=== PATIENT | male | born 1950 | race Caucasian/White ===

== ENCOUNTER 2019-04-19 07:36 | Inpatient (IN) ==
[2019-04-19] MEDS ORDERED: *HR* Propofol 200 MG/20 ML VIAL IVP ONE (07:44)
[2019-04-19] MEDS ORDERED: Lidocaine -MPF 2% 2 ML VIAL ONE (07:44)
--- NOTE | 2019-04-19 08:16 | History & Physical Report ---
Date of Encounter: 04/19/19 Time of Encounter: 08:16 24 Hour HP Update - Instructions Instructions: If the History and Physical is less than 30 days old and was completed prior to A.M. admission and or procedure and has NOT been updated on calendar day of procedure please complete this update prior to performing procedure. - Update Patient reports changes in Medical Condition: No Changes in examination, assessment, or condition: No Changes in Medication: No Preop tests/diagnostics Reviewed: Yes Surgery Remains Indicated: Yes Consent for Planned Operative Procedure(s) Verified: Yes
--- NOTE | 2019-04-19 08:27 | Anesthesia Evaluation PreOp ---
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: Denies Any Significant HX Other Medical History: Denies Any Significant HX Anesthesia History: No Prior Anesthetic Complications Alcohol Use: heavy Drug use: none Medications and Allergies Albuterol Sulfate [Proair Hfa] 2 puff IH Q4-6H PRN 03/03/19 [History] Amlodipine Besylate 10 mg PO DAILY 03/03/19 [History] Aspirin [Lo-Dose Aspirin EC] 81 mg PO DAILY 03/03/19 [History] Lisinopril [Zestril] 20 mg PO DAILY 03/03/19 [History] Metoprolol Tartrate 200 mg PO BID 03/03/19 [History] Multivitamin [One Daily Essential] 1 tab PO DAILY 03/03/19 [History] cloNIDine HCl [Clonidine HCl] 0.2 mg PO BID 03/03/19 [History] hydroCHLOROthiazide [Hydrochlorothiazide] 25 mg PO DAILY 03/03/19 [History] Nicotine Patch [Nicoderm] 14 mg TD DAILY #30 patch.[email or web address] 03/20/19 [Rx] Allergy/AdvReac Type Severity Reaction Status Date / Time No Known Allergies Allergy Verified 04/06/19 10:31 - Meds/Allergy Pre-op Review Medications Reviewed: Yes Allergies Reviewed: Yes Beta Blockers on Current Med List: Yes (on metoprolol) Anesthesia Results - Labs Laboratory Tests 04/06/19 04/06/19 10:08 10:08 Hgb 14.7 Hct 42.2 Plt Count 176 Sodium 136 Potassium 4.2 BUN 11 Creatinine 0.61 L - Imaging EKG: report reviewed (SB) Anesthesia Exam O2 Sat Height 1.6 m Weight 61.235 kg Height: 5'3 Weight: 135 lbs NPO (# of Hours): MN Pain Scale: 0 - HEENT Pupil (Motor): Pupils equal, EOMI Oral Opening: Greater than 3 - WALL STEAMER LOC: Oriented WALL STEAMER Motor: Normal RUE, Normal LUE, Normal RLE, Normal LLE, Normal Face WALL STEAMER Sensory: Normal: RUE, LUE, RLE, LLE, Face - Cardiac Rhythm: Regular Murmur: None JVD: No Carotid Bruit: No - Pulmonary Breath Sounds: bilateral Clear Respiratory Effort: Symmetrical Anesthesia Assess/Plan ASA Score: 3 (HTN Tobacco Alcohol Abuse) Level of consciousness: Cooperative, Oriented Anesthetic Plan: MAC Autologous Blood: No Monitoring Plan: Standard Monitors Recovery Plan: Other (Discussed MAC, agrees to proceed)
[2019-04-19] MEDS ORDERED: Ringers Solution, Lactated 1,000 ML IVC SCH (08:30)
[2019-04-19] MEDS ORDERED: Albuterol 2.5 MG/3 ML NEBULIZER IH ONE (08:40)
[2019-04-19] MEDS ORDERED: Albuterol 2.5 MG/3 ML NEBULIZER ONE (08:43)
--- NOTE | 2019-04-19 09:50 | Anesthesia Evaluation Post Op ---
Date of Encounter: 04/19/19 Time of Encounter: 09:50 - Vital Signs Vital Signs: Vital Signs/O2 Sat/Glucose, Most Current Temp Pulse Resp BP Pulse Ox 04/19/19 09:32 97.1 F L 47 16 99/57 100 04/19/19 08:30 18 124/53 100 04/19/19 08:25 98 F 47 18 124/53 100 - Lungs Lungs: Clear Ascult./Percussion - Airway Airway: Non-obstructed - Cardiovascular Regular Rate - Mental Status Mental Status: Alert & Oriented, Answers Appropriately - Pain Pain Scale: 0 - Nausea Vomiting Nausea Vomiting: Not Present - Hydration Hydration: NPO - Discharge PostOp Status: Transfer Patient to floor (Patient has obstructing mass, will get admitted)
[2019-04-19] MEDS ORDERED: Ondansetron 4 MG/2 ML VIAL IVP PRN (11:23)
[2019-04-19] MEDS ORDERED: Isovue-370 500 ML BOTTLE IVP ONE ×2 (11:23)
[2019-04-19] MEDS: 0.9 % Sodium Chloride 1,000 ML IVC SCH (12:07)
[2019-04-19 12:28] LABS: Basophils % 0.3 %; Eosinophils % 3.4 %; Hematocrit 45.4 % (37.5-50.1); Hemoglobin 15.7 g/dL (12.9-16.9); Immature Granulocytes % 0.6 % (0-4); Lymphocytes % 25.7 %; Mean Corpuscular HGB Conc 34.6 g/dL (31.6-35.5); Mean Corpuscular Hemoglobin 35.2 pg (28.0-33.3); Mean Corpuscular Volume 101.8 fL (83.0-100.0); Mean Platelet Volume 9.1 fL (9.4-12.4); Monocytes % 15.8 %; Platelet Count 191 K/mcL (140-400); Red Blood Count 4.46 M/mcL (4.19-5.50); Red Cell Distribution Width 13.4 % (11.5-14.5); Segmented Neutrophils % 54.2 %
[2019-04-19 12:29] LABS: Eosinophils # 0.2 K/mcL (0.0-0.6); Lymphocytes # 1.7 K/mcL (0.6-4.6); Monocytes # 1.1 K/mcL (0.0-1.3); Neutrophils # 3.7 K/mcL (1.6-8.9)
[2019-04-19 12:38] LABS: Alanine Aminotransferase 39 Units/L (7-52); Albumin 4.1 g/dL (3.5-5.7); Albumin/Globulin Ratio 1.3 (1.1-2.2); Alkaline Phosphatase 64 Units/L (34-104); Aspartate Amino Transferase 35 Units/L (13-39); BUN/Creatinine Ratio 10 (6-26); Bilirubin,Direct 0.1 mg/dL (0.0-0.2); Bilirubin,Indirect 0.5 mg/dL (0.0-1.2); Bilirubin,Total 0.6 mg/dL (0.3-1.0); Blood Urea Nitrogen 8 mg/dL (8-23); Calcium 9.6 mg/dL (8.6-10.3); Carbon Dioxide 25 mEq/L (23-29); Chloride 103 mEq/L (98-107); Globulin 3.1 g/dL (2.4-3.5); Glucose 102 mg/dL (70-105); Osmolality,Calculated 269 (280-300); Potassium 3.7 mEq/L (3.5-5.1); Sodium 130 mEq/L (136-145); Total Protein 7.2 g/dL (6.4-8.9); eGFR For Non-African Americans > 60 (> 60)
[2019-04-19] MEDS: Nicotine 21 MG PATCH.TD24 TD SCH (17:07)
[2019-04-19] MEDS: cloNIDine HCl 0.1 MG TABLET PO SCH (20:28)
[2019-04-19] MEDS: Metoprolol 100 MG TABLET PO SCH (20:28)
[2019-04-20] MEDS ORDERED: Lisinopril 20 MG TABLET PO SCH (09:00)
[2019-04-20] MEDS ORDERED: Pantoprazole 40 MG VIAL IVP SCH (09:00)
[2019-04-20] MEDS ORDERED: amLODIPine 5 MG TABLET PO SCH (09:00)
[2019-04-20] MEDS ORDERED: hydroCHLOROthiazide 25 MG TABLET PO SCH (09:00)
[2019-04-20] MEDS ORDERED: Aspirin Enteric Coated 81 MG Tablet PO SCH (09:00)
[2019-04-20] MEDS: Metoprolol 100 MG TABLET PO SCH ×2 (09:14→20:15)
[2019-04-20] MEDS: Nicotine 21 MG PATCH.TD24 TD SCH (09:15)
[2019-04-20] MEDS: cloNIDine HCl 0.1 MG TABLET PO SCH ×2 (09:15→20:17)
[2019-04-20] MEDS: 0.9 % Sodium Chloride 1,000 ML IVC SCH (09:16)
[2019-04-20] MEDS ORDERED: Ketorolac 15 MG/ML VIAL IVP PRN (10:00)
--- NOTE | 2019-04-20 10:02 | General Surgery Progress Note ---
Date of Encounter: 04/20/19 Time of Encounter: 10:00 - Assessment and Plan (1) Mass of colon Current Visit: Yes Status: Acute Colonoscopy completed on 04/19/2019 noted a fungating completely obstructing large mass found in the rectosigmoid colon, circumferential, losing present, pathology pending. Ct abd/pelvis/chest noted descending thoracic aorta 4.1 cm, no evidence for pulmonary metastatic disease, nodular mural sigmoid partially obstructing mass m ost compatible with neoplasm measuring at least approximately 10 cm, at least 3 cm section of tumor possibly adjacent to the posterior bladder wall with possible bladder wall invasion, concern for [place] the secular fistula (patient reports no stool per urine), and a curvilinear gas pocket along the left side of the sigmoid colon. Patient will be discussed in tumor board on Wednesday. Further recommendations pending (timing of surgery) Plan: Pt is currently on CLD with Ensure clear. Will check albumin, prealbumin, mag, phos in possible TPN. OOB to chair TID Pt may shower Obtain a standing scale weight as weights in I/O appear inaccurate Strict I&O No urine recorded since 458. Reviewed with bedside RN, if pt has not urinate, please obtain a bladder scan STAT Smoking cessation (consult RT to begin aggressive pulm toileting and Acapella) Ambulate TID Apply MARIAM hose, EPCDs while in bed GI and DVT prophylaxis Echo and EKG for preop risk Will discuss with Dr. Rowley for recommendations regarding CT above (2) HTN, goal below 130/80 Current Visit: Yes Status: Acute Continue home meds Currently normotensive (3) Smoking addiction Current Visit: Yes Status: Chronic nicotine patch smoking cessation Aggressive pulm toileting (4) Aortic valve insufficiency Current Visit: Yes Status: Chronic Check Echo Qualifiers: Cardiac valve disease etiology: etiology unspecified Qualified Code(s): I35.1 - Nonrheumatic aortic (valve) insufficiency (5) History of bladder cancer Current Visit: Yes Status: Acute s /p transurethral bladder cancer resection Patient of Dr. Rowley Subjective Patient reports: still having pain (low abdomen; intermittent, tolerable, dull), tolerating liquids well, voiding w/o difficulty, no flatus, no bowel movement, other (fartun n/v/or BM) Objective Vital Signs - Last 8 Hours Temp Pulse Resp BP Pulse Ox 04/20/19 07:41 98.2 F 62 16 167/57 98 04/20/19 04:38 97.9 F 53 15 166/57 97 Intake and Output 04/19/19 04/20/19 04/20/19 23:59 07:59 15:59 Intake Total 0 / 1560 1560 / 1560 Output Total 275 / 275 Balance -275 / 1285 1560 / 1285 Intake: IV Fluids 1000 / 1000 0.9 % Sodium Chloride 1,000 ML 1000 / 1000 @ 50 mls/hr IVC .Q20H [facility] Rx#: [id number] Oral 0 / 560 560 / 560 Output: Urine 275 / 275 Other: Meal clears Percent of Meal Consumed 0% Weight 62.7 kg Patient Weight 04/20/19 23:59 Weight 62.7 kg - General physical appearance no distress, other (mild pain) - Eyes normal ocular movement - ENT normal nares, normal mucosa, atraumatic, normocephalic, Other (nicotine staining to mustache) - Neck Neck exam: trachea midline - Respiratory other (decreased, tight) - Cardiovascular Cardiovascular exam: Present: RRR, murmurs (systolic) - Abdomen Abdomen: Present: bowel sounds present, soft, tender Abdominal Tenderness: RLQ, LLQ Hernia: none - Integumentary no rash, no growths - Neurologic normal coordination, normal sensation - Musculoskeletal normal posture - Psychiatric oriented to time, oriented to person, oriented to place, speech is normal, memory intact - Labs 04/19/19 11:56 04/19/19 11:56 Diabetes panel 04/19/19 Range/Units 11:56 Sodium 130 L (136-145) mEq/L Potassium 3.7 (3.5-5.1) mEq/L Chloride 103 (98-107) mEq/L Carbon Dioxide 25 (23-29) mEq/L BUN 8 (8-23) mg/dL Creatinine 0.80 (0.70-1.30) mg/dL Glucose 102 (70-105) mg/dL Calcium 9.6 (8.6-10.3) mg/dL AST 35 (13-39) Units/L ALT 39 (7-52) Units/L Alkaline Phosphatase 64 (34-104) Units/L Albumin 4.1 (3.5-5.7) g/dL Calcium panel 04/19/19 Range/Units 11:56 Calcium 9.6 (8.6-10.3) mg/dL Albumin 4.1 (3.5-5.7) g/dL Pituitary panel 04/19/19 Range/Units 11:56 Sodium 130 L (136-145) mEq/L Potassium 3.7 (3.5-5.1) mEq/L Chloride 103 (98-107) mEq/L Carbon Dioxide 25 (23-29) mEq/L BUN 8 (8-23) mg/dL Creatinine 0.80 (0.70-1.30) mg/dL Glucose 102 (70-105) mg/dL Calcium 9.6 (8.6-10.3) mg/dL Adrenal panel 04/19/19 Range/Units 11:56 Sodium 130 L (136-145) mEq/L Potassium 3.7 (3.5-5.1) mEq/L Chloride 103 (98-107) mEq/L Carbon Dioxide 25 (23-29) mEq/L BUN 8 (8-23) mg/dL Creatinine 0.80 (0.70-1.30) mg/dL Glucose 102 (70-105) mg/dL Calcium 9.6 (8.6-10.3) mg/dL Total Bilirubin 0.6 (0.3-1.0) mg/dL AST 35 (13-39) Units/L ALT 39 (7-52) Units/L Alkaline Phosphatase 64 (34-104) Units/L Albumin 4.1 (3.5-5.7) g/dL Consult Discharge Plan - Plan Referrals: Christelle Jansen MD [Primary Care Provider] -
[2019-04-20 10:59] LABS: BUN/Creatinine Ratio 11 (6-26); Blood Urea Nitrogen 6 mg/dL (8-23); Carbon Dioxide 25 mEq/L (23-29); Chloride 105 mEq/L (98-107); Glucose 113 mg/dL (70-105); Magnesium 1.8 mg/dL (1.6-2.6); Osmolality,Calculated 278 (280-300); Phosphorous 2.6 mg/dL (2.7-4.5); Potassium 3.4 mEq/L (3.5-5.1); Sodium 135 mEq/L (136-145); eGFR For Non-African Americans > 60 (> 60)
[2019-04-20] MEDS ORDERED: Potassium Chloride 40 MEQ, Lidocaine 1% 2 ML in D5% in Water 500 ML IVPB ONE (11:06)
--- NOTE | 2019-04-20 13:01 | Discharge Summary ---
Orders not resulted at time of discharge: Pending orders 04/20/19 09:55 ECG 12 lead ECG [ECG] Routine (completed see hosp course) EV echocardiogram Routine Date of Encounter: 04/20/19 Time of Encounter: 13:02 - Discharge Diagnosis (1) Mass of colon Priority: Primary Status: Acute (2) HTN, goal below 130/80 Priority: Secondary Status: Chronic (3) Smoking addiction Priority: Secondary Status: Chronic (4) Aortic valve insufficiency Priority: Secondary Status: Chronic Qualifiers: Cardiac valve disease etiology: etiology unspecified Qualified Code(s): I35.1 - Nonrheumatic aortic (valve) insufficiency (5) History of bladder cancer Priority: Secondary Status: Chronic General Surgery Exam Initial Vital Signs Temp Pulse Resp BP Pulse Ox 98 F 47 18 124/53 100 04/19/19 08:25 04/19/19 08:25 04/19/19 08:25 04/19/19 08:25 04/19/19 08:25 No changes from previous exam - Hospital Course Hospital course: Mr. Elizabeth is a 69 year old male with past medical history of hypertension, sm oking addiction, aortic valve insufficiency, COPD, and bladder cancer status post TUR BT on 03/03/2019. 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 He was recommended to see Dr. Krueger for a colonoscopy given his 20 pound weight loss in the last 4 months. He had no family history of colon cancer. He underwent colonoscopy on 04/19/2019 at which time he was noted to have a fun dating completely obstructing large mass found in the rectosigmoid colon. The mass was circumferential, losing was present, mucosal was biopsied with cold forceps. Pathology was indeterminate. CT of the chest/abd/pelvis with IV contrast and noted descending thoracic aorta 4.1 cm, no evidence for pulmonary metastatic disease, nodular mural sigmoid partially obstructing mass most compatible with neoplasm measuring at least approximately 10 cm, at least 3 cm section of tumor possibly adjacent to the posterior bladder wall with possible bladder wall invasion, concern for Colovesciluar fistula (patient reports no stool per urine), and a curvilinear gas pocket along the left side of the sigmoid colon. He reports low abdominal discomfort that is similar to when he was admitted. He has not needed pain medication for this. His WBC is normal at 6.8, hemoglobin 15.7, hematocrit 45.4, sodium is slightly low at 135, potassium 3.4 creatinine 0.53, and phosphorus 2.6. Potassium was replaced with 40 M EQ and phosphorus/sodium was replaced with sodium phosphate. He is presently 960 mL positive on his fluid balance having had 1560 ML input and 600 ML output. His vital signs are stable. Heart rate 56, respirations 18, blood pressure 134/54, 95% on room air. He is afebrile Dr. Krueger (attending general surgeon) reviewed the findings with Dr. Rowley (urologist) who states the patient will likely need a complete bladder resection with ileal conduit along with the colon resection/diversion and recommends transfer to [facility]. The patient also notes he was to be seen at the [facility] on 04/21/2019 and have a port placed to begin chemo treatments. He inquires as to whether [facility] will place this while he is there. 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 SB (50 BPM). Echo is obtained and report unavailable at the time of this DC summary. CD of all imaging including PET scan from is with patient. We will begin d/c planning to [facility]. Pt may follow-up with urology and the cancer center as directed after d/c from [facility]. Patient has been accepted by Dr. Reji Hart (med/onc). [facility] to notify floor when bed is available and he can be transported at that time. Time spent discussing smoking cessation with patient: 3 to 10 minutes - Time Spent with Patient Total time spent providing and/or coordinating discharge services: Greater than 30 minutes Specific discharge activities: trasnfer to [facility], phone conversations with and patient explaining clinical course and expectations. - Discharge Medications Prescriptions: No Action cloNIDine HCl [Clonidine HCl] 0.2 mg PO BID Amlodipine Besylate 10 mg PO DAILY Metoprolol Tartrate 200 mg PO BID Lisinopril [Zestril] 20 mg PO DAILY hydroCHLOROthiazide [Hydrochlorothiazide] 25 mg PO DAILY Multivitamin [One Daily Essential] 1 tab PO DAILY Aspirin [Lo-Dose Aspirin EC] 81 mg PO DAILY Albuterol Sulfate [Proair Hfa] 2 puff IH Q4-6H PRN PRN Reason: Shortness Of Breath Home Medications: Albuterol Sulfate [Proair Hfa] 2 puff IH Q4-6H PRN 03/03/19 [History] Amlodipine Besylate 10 mg PO DAILY 03/03/19 [History] Aspirin [Lo-Dose Aspirin EC] 81 mg PO DAILY 03/03/19 [History] Lisinopril [Zestril] 20 mg PO DAILY 03/03/19 [History] Metoprolol Tartrate 200 mg PO BID 03/03/19 [History] Multivitamin [One Daily Essential] 1 tab PO DAILY 03/03/19 [History] cloNIDine HCl [Clonidine HCl] 0.2 mg PO BID 03/03/19 [History] hydroCHLOROthiazide [Hydrochlorothiazide] 25 mg PO DAILY 03/03/19 [History] Allergies/Adverse Reactions: Allergy/AdvReac Type Severity Reaction Status Date / Time No Known Allergies Allergy Verified 04/06/19 10:31 Date of admission: 04/19/19 11:22 Primary care physician: Christelle Jansen MD Consults: 04/19/19 11:42 Consult to Nutrition [CONS] Routine Comment: Consulting Provider: NUTRITION Reason for Dietary Consult: Diet Education 04/20/19 10:01 Consult to Respiratory Therapy [CONS] Routine Reason for Consult: hx of smoking 2ppd, please begin aggressive pulm toileting and Acapella, pt will likely have major surgery Wednesday or Wednesday Time Notified: 10:02 Call Completed: No Discharging clinician: Agnieszka Benjamin Anticipated date of discharge: 04/20/19 Labs on day of discharge: Labs from last 24 hours 04/20/19 04/20/19 04/19/19 09:42 09:42 11:56 Sodium 135 L Potassium 3.4 L Chloride 105 Carbon Dioxide 25 BUN 6 L Creatinine 0.53 L Est GFR ( Amer) > 60 Est GFR (Non-Af Amer) > 60 BUN/Creatinine Ratio 11 Glucose 113 H Calculated Osmolality 278 L Calcium 9.0 Phosphorus 2.6 L Magnesium 1.8 Prealbumin 21.0 Carcinoembryonic Ag 50.7 H - Impressions ITS Impressions Abdomen/Pelvis CT 04/19/19 14:00 IMPRESSION: 1. Ectatic ascending thoracic aorta 4.1 cm in diameter. 2. No evidence for pulmonary metastatic disease. 3. Nodular mural mid sigmoid partially obstructing enhancing mass most compatible with neoplasm. The configuration of the bowel makes it difficult to determine exact length however this is estimated at at least 10 cm. 4. There is at least 3 cm section of the tumor inseparable from the adjacent posterior bladder wall, along with extensive posterior bladder wall thickening which would indicate bladder wall invasion. 5. Interval development of gas in the urinary bladder noted along with a defect in the mass/bladder wall interface best seen on sagittal views. 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 6. An indeterminate curvilinear gas pocket about 2.5 x 0.4 x 3.0 cm (AP by TV by CC) along the left side of the sigmoid colon just distal to the mass. Continuous communication with the bowel lumen is not demonstrated. This may well represent a sealed of perforation. This has developed since the last exam. The findings were sent to the Radiology Results Communication Center at 2:48 pm on 04/19/2019to be communicated to a licensed caregiver. D/ / Kurt Hernandez MD / Kurt Hernandez MD Interpreting Provider: Kurt Hernandez MD Chest CT 04/19/19 14:00 IMPRESSION: 1. Ectatic ascending thoracic aorta 4.1 cm in diameter. 2. No evidence for pulmonary metastatic disease. 3. Nodular mural mid sigmoid partially obstructing enhancing mass most compatible with neoplasm. The configuration of the bowel makes it difficult to determine exact length however this is estimated at at least 10 cm. 4. There is at least 3 cm section of the tumor inseparable from the adjacent posterior bladder wall, along with extensive posterior bladder wall thickening which would indicate bladder wall invasion. 5. Interval development of gas in the urinary bladder noted along with a defect in the mass/bladder wall interface best seen on sagittal views. 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 6. An indeterminate curvilinear gas pocket about 2.5 x 0.4 x 3.0 cm (AP by TV by CC) along the left side of the sigmoid colon just distal to the mass. Continuous communication with the bowel lumen is not demonstrated. This may well represent a sealed of perforation. This has developed since the last exam. The findings were sent to the Radiology Results Communication Center at 2:48 pm on 04/19/2019to be communicated to a licensed caregiver. D/ / Kurt Hernandez MD / Kurt Hernandez MD Interpreting Provider: Kurt Hernandez MD - Patient Status Disposition: Transfer Short-Term Hosp Condition: Good Functional capacity at discharge: independent ambulation Overall status at discharge: patient is not back to baseline - Discharge Instructions Follow Up With: Christelle Jansen MD [Primary Care Provider] - Additional Instructions: To be determined per [facility]
[2019-04-20 19:35] VITALS: BP 167/63
--- NOTE | 2019-04-21 14:19 | Electrocardiograph Report ---
[address] [place] [address] Test Date: 2019-04-20 Pat Name: Edgard Elizabeth Department: 115 Room: 3A42 Gender: M Bunch Maker: : [id number] Requested By: Agnieszka Benjamin Order Number: [id number] Reading MD: Joel Cunningham Measurements Intervals [place] Rate: 50 P: 46 MT: 181 QRS: -42 QRSD: 94 T: 48 QT: 428 QTc: 402 Interpretive Statements SINUS BRADYCARDIA MARKED LEFT AXIS DEVIATION SEPTAL MYOCARDIAL INFARCTION, PROBABLY OLD Electronically Signed On 04-21-2019 14:17:33 EDT by Joel Cunningham
== END 2019-04-20 20:52 | disposition short-term general hospital (02) | DRG 375 ==
LOC: 2ANU 07:36 → SAMDAY 07:36 → 3ANU 15:56
PROVIDERS: ADMIT Surgery; ATTEND Surgery
PROC: ENDOCBX (2019-04-19 08:55)

== ENCOUNTER 2021-04-22 12:11 | Observation (INO) ==
[2021-04-22] MEDS ORDERED: Naloxone 0.4 MG/ML INJ IVP PRN (13:22)
[2021-04-22] MEDS ORDERED: Acetaminophen 325 MG TABLET PO PRN (13:22)
[2021-04-22] MEDS ORDERED: *HR* OxyCODONE Immed Rel 5 MG TABLET PO PRN (13:22)
[2021-04-22] MEDS ORDERED: Albuterol 2.5 MG/3 ML NEBULIZER IH PRN (15:00)
[2021-04-22] MEDS ORDERED: Ipratropium/Albuterol Neb 3 ML IH PRN (15:00)
[2021-04-22] MEDS: Ampicillin/Sulbactam 3,000 MG in 0.9 % Sodium Chloride Mini Bag 100 ML IVPB SCH ×2 (17:59→20:13)
[2021-04-23] MEDS: cloNIDine HCL 0.1 MG TABLET PO SCH ×3 (00:47→19:37)
[2021-04-23] MEDS: Ampicillin/Sulbactam 3,000 MG in 0.9 % Sodium Chloride Mini Bag 100 ML IVPB SCH ×4 (02:22→19:37)
[2021-04-23 05:18] LABS: Basophils % 0.1 %; Hematocrit 35.7 % (37.5-50.1); Hemoglobin 11.7 g/dL (12.9-16.9); Immature Granulocytes % 0.9 % (0-4); Lymphocytes % 12.6 %; Mean Corpuscular HGB Conc 32.8 g/dL (31.6-35.5); Mean Corpuscular Hemoglobin 29.4 pg (28.0-33.3); Mean Corpuscular Volume 89.7 fL (83.0-100.0); Neutrophils # 5.9 K/mcL (1.6-8.9); Platelet Count 243 K/mcL (140-400); Red Blood Count 3.98 M/mcL (4.19-5.50); Red Cell Distribution Width 18.2 % (11.5-14.5); Segmented Neutrophils % 74.4 %; White Blood Count 7.9 K/mcL (4.3-11.1)
[2021-04-23 05:34] LABS: BUN/Creatinine Ratio 20 (6-26); Blood Urea Nitrogen 13 mg/dL (8-23); Calcium 9.1 mg/dL (8.6-10.3); Carbon Dioxide 23 mEq/L (23-29); Chloride 108 mEq/L (98-107); Glucose 134 mg/dL (70-105); Osmolality,Calculated 290 (280-300); Potassium 3.4 mEq/L (3.5-5.1); Sodium 139 mEq/L (136-145); eGFR For African Americans > 60 (> 60); eGFR For Non-African Americans > 60 (> 60)
[2021-04-23] MEDS: calcium polycarbophiL 625 MG TABLET PO SCH ×2 (07:32→19:36)
[2021-04-23] MEDS: cilostazoL 100 MG TABLET PO SCH ×2 (07:32→19:36)
[2021-04-23] MEDS: carvediloL 25 MG TABLET PO SCH ×2 (07:32→16:46)
[2021-04-23] MEDS: amLODIPine 5 MG TABLET PO SCH (07:32)
[2021-04-23] MEDS: Aspirin Enteric Coated 81 MG Tablet PO SCH (07:32)
[2021-04-23] MEDS: Nicotine 21 MG PATCH.TD24 TD SCH (07:33)
[2021-04-24] MEDS: Ampicillin/Sulbactam 3,000 MG in 0.9 % Sodium Chloride Mini Bag 100 ML IVPB SCH ×2 (04:10→07:50)
[2021-04-24 06:49] LABS: Basophils % 0.2 %; Eosinophils # 0.2 K/mcL (0.0-0.6); Eosinophils % 1.9 %; Hematocrit 36.4 % (37.5-50.1); Hemoglobin 11.8 g/dL (12.9-16.9); Immature Granulocytes % 0.6 % (0-4); Lymphocytes # 2.1 K/mcL (0.6-4.6); Lymphocytes % 23.6 %; Mean Corpuscular HGB Conc 32.4 g/dL (31.6-35.5); Mean Corpuscular Hemoglobin 29.4 pg (28.0-33.3); Mean Corpuscular Volume 90.5 fL (83.0-100.0); Mean Platelet Volume 9.4 fL (9.4-12.4); Monocytes # 0.8 K/mcL (0.0-1.3); Monocytes % 8.4 %; Neutrophils # 5.9 K/mcL (1.6-8.9); Platelet Count 244 K/mcL (140-400); Red Blood Count 4.02 M/mcL (4.19-5.50); Red Cell Distribution Width 18.7 % (11.5-14.5); Segmented Neutrophils % 65.3 %; White Blood Count 9.1 K/mcL (4.3-11.1)
[2021-04-24 07:19] LABS: BUN/Creatinine Ratio 21 (6-26); Blood Urea Nitrogen 15 mg/dL (8-23); Carbon Dioxide 24 mEq/L (23-29); Chloride 108 mEq/L (98-107); Glucose 101 mg/dL (70-105); Osmolality,Calculated 289 (280-300); Phosphorous 2.8 mg/dL (2.7-4.5); Potassium 3.5 mEq/L (3.5-5.1); Sodium 139 mEq/L (136-145); eGFR For African Americans > 60 (> 60); eGFR For Non-African Americans > 60 (> 60)
[2021-04-24] MEDS: carvediloL 25 MG TABLET PO SCH (07:51)
[2021-04-24] MEDS: calcium polycarbophiL 625 MG TABLET PO SCH (07:51)
[2021-04-24] MEDS: amLODIPine 5 MG TABLET PO SCH (07:51)
[2021-04-24] MEDS: Aspirin Enteric Coated 81 MG Tablet PO SCH (07:51)
[2021-04-24] MEDS: Nicotine 21 MG PATCH.TD24 TD SCH (07:51)
[2021-04-24] MEDS: cilostazoL 100 MG TABLET PO SCH (07:51)
[2021-04-24 08:57] VITALS: BP 155/62
[2021-04-24] MEDS ORDERED: cloNIDine HCL 0.1 MG TABLET PO SCH (09:00)
== END 2021-04-24 10:46 | disposition home or self-care (01) ==
LOC: 3BNU 12:11 → EMEROOARM 12:11 → SUATTDRO 13:33 → 3BNU 14:18
PROVIDERS: ADMIT Internal Medicine; ATTEND Internal Medicine